=== PATIENT | female | born 1940 | race Two or more races ===

== ENCOUNTER → 2017-07-12 | Outpatient (CLI) | payer OTHER | END | disposition home or self-care (01) | LOC: HKI 11:31 | DX: M17.11 Unilateral primary osteoarthritis, right knee (principal); I10 Essential (primary) hypertension; E11.9 Type 2 diabetes mellitus without complications; G20 Parkinson's disease | CPT/HCPCS: 73564; 73564-RT ==

== ENCOUNTER → 2017-07-19 | Outpatient (CLI) | payer OTHER | END | disposition home or self-care (01) | LOC: HKI 09:43 | DX: M17.12 Unilateral primary osteoarthritis, left knee (principal); M16.0 Bilateral primary osteoarthritis of hip; M54.16 Radiculopathy, lumbar region | CPT/HCPCS: 73502; 73564-LT ==

== ENCOUNTER → 2017-08-09 | Outpatient (CLI) | payer OTHER | END | disposition home or self-care (01) | LOC: HKI 08:49 | DX: M17.0 Bilateral primary osteoarthritis of knee (principal) | CPT/HCPCS: J7327 ==